=== PATIENT | male | born 1990 | race Caucasian/White ===

== ENCOUNTER 2017-01-01 05:51 | Emergency (ER) | payer MEDICARE, OTHER, MEDICAID ==
--- NOTE | 2017-01-01 08:00 | ED ---
Abdominal Pain/Male - HPI Summary HPI Summary: Non-verbal, developmentally delayed pt here w/ constipation. Last BM was on 2016. Pt has struggled w/ constipation his whole life but this is one of 2 times it's been this bad. Pt's PCP switched him from Miralax to lactulose 2 weeks ago. Mom reports he was taking miralax routinely but when she switched brands, it didn't work as well. She switched back to brand name Miralax. Has given him multiple Fleet's enema's now (1 last night, 1 this morning). She heard him whining in his room this morning and he appeared to be struggling w/ a BM - she thinks it's so painful to move at this point, he not trying to push anymore. Has not tried suppository. Denies fever, vomiting, skin changes, signs/sx of illness (ie. no coughing, sneezing, rhinorrhea, change in appetite, pain w/ eating/drinking). Mom has had OM. Pt is UTD w/ imms. No h/o ab pathology other than constipation. He does had GERD and takes PPI daily - no recent change in brand or dose. Pt is scheduled to see Dr. Ashley 01/23. - History of Current Complaint Chief Complaint: EDAbdPain Stated Complaint: CONSTIPATION Time Seen by Provider: 01/01/17 06:05 Hx Obtained From: Family/Production Superintendent - mom - Allergies/Home Medications Allergies/Adverse Reactions: Allergies Allergy/AdvReac Type Severity Reaction Status Date / Time Amoxicillin Allergy Hives Verified 01/01/17 13:47 Carbamazepine [From Tegretol] Allergy Nausea And Verified 01/01/17 13:47 Vomiting Cefaclor [From Ceclor] Allergy Hives Verified 01/01/17 13:47 Gentamicin Allergy Hives Verified 01/01/17 13:47 Penicillins Allergy Hives Verified 01/01/17 13:47 Vancomycin Allergy Hives Verified 01/01/17 13:47 Figs Allergy Hives Uncoded 01/01/17 13:47 ROBINOL Allergy Hives Uncoded 01/01/17 13:47 Sure Fine Hi C Allergy Hives Uncoded 01/01/17 13:47 PMH/Surg Hx/FS Hx/Imm Hx Previously Healthy: Yes Respiratory History: Reports: Other Respiratory Problems/Disorders - POSITIVE TB TEST GI History: Reports: Hx Gastroesophageal Reflux Disease - takes PPI, Other GI Disorders - HX OF CONSTIPATION Neurological History: Reports: Hx Developmental Delay, Other Neuro Impairments/ Disorders - non-verbal Infectious Disease History: No Infectious Disease History: Denies: Traveled Outside the [place] in Last 30 Days - Social History Occupation: Unemployed Lives: With Family Alcohol Use: None Hx Substance Use: No Substance Use Type: Reports: None Hx Tobacco Use: No Smoking Status (MU): Never Smoked Tobacco Review of Systems Negative: Fever, Chills, Fatigue Negative: Sore Throat - eating and drinking w/o hesitation, Ear Ache - not tugging on ears Negative: Shortness Of Breath, Cough Positive: Abdominal Pain - see HPI. Negative: Vomiting, Diarrhea Genitourinary: Other - still wetting diapers Positive: no symptoms reported Negative: Decreased ROM Negative: Rash, Bruising Negative: Weakness Psychological: Normal All Other Systems Reviewed And Are Negative: Yes Physical Exam - Summary Physical Exam Summary: Level 5 caveat - developmental delay, non-verbal, does not follow commands Triage Information Reviewed: Yes Vital Signs On Initial Exam: Initial Vitals Temp Pulse Resp BP Pulse Ox 99.2 F 87 18 121/61 98 01/01/17 05:56 01/01/17 05:56 01/01/17 05:56 01/01/17 05:56 01/01/17 05:56 Vital Signs Reviewed: Yes Appearance: Positive: Well-Appearing - non-verbal, No Pain Distress, Well- Nourished Skin: Positive: Warm, Dry - no rash, no ecchymosis observed Eyes: Positive: Normal, EOMI, Conjunctiva Clear - anicteric sclera ENT: Positive: Pharynx normal - mucosa moist, TMs normal. Negative: Nasal congestion, Nasal drainage, TM bulging, TM dull, TM red Neck: Positive: Supple Respiratory/Lung Sounds: Positive: Clear to Auscultation, Breath Sounds Present. Negative: Rales, Rhonchi, Wheezes Cardiovascular: Positive: RRR, Pulses are Symmetrical in both Upper and Lower Extremities Abdomen Description: Positive: Guarding Bowel Sounds: Positive: Present Musculoskeletal: Positive: Other - contracted Neurological: Positive: Other - non-verbal, does not understand nor respond to commands - Abdi Coma Scale Coma Scale Total: 15 Procedures - Procedure Summary Procedure Summary: Attempted Digital Rectal disimpaction w/o success - stool was not palpated but rather a space - flecks of stool were removed w/ lubricant in finger - no blood observed. Pt tolerated well. Diagnostics - Vital Signs Vital Signs Temp Pulse Resp BP Pulse Ox 01/01/17 05:56 99.2 F 87 18 121/61 98 - Laboratory Result Diagrams: 01/01/17 12:45 01/01/17 12:45 Lab Statement: Any lab studies that have been ordered have been reviewed, and results considered in the medical decision making process. Abdominal Pain Fem Course/Dx - Course Course Of Treatment: Pt presents w/ constipation - last BM 4 days ago. H/o constipation and mom believes this may be d/t recent change in laxatives. She tried 2 Fleet's enemas at home. Denies recent s/sx of illness (fever, vomiting, diarrhea, change in appetite, etc). Ab XR reveals constipation w/o obstruction. Attempted soap suds enema followed by [facility] w/ hopes of disimpaction w/o success of BM. CT normal other than constipation. Labs and vital are WNL. Spoke w/ Dr. Armas who agrees to have Dr. Ashley's nurse contact the pt's family this week to move appt sooner. Okay to try mag citrate 1 bottle OR miralax 4 glasses per day. Will provide mag citrate here and d/c home with instructions on how to use miralax. Reviewed danger s/sx of when to return to ED. Pt's mom voices understanding. - Diagnoses Differential Diagnosis/HQI/PQRI: Appendicitis, Bowel Obstruction, Constipation, Diverticulitis, Gall Bladder Disease, Pancreatitis, Ureteral Stone, Urinary Tract Infection Provider Diagnoses: Slow transit constipation - Provider Notifications Discussed Care Of Patient With: Dr. Calabrese. Dr. Armas Discharge - Discharge Plan Condition: Stable Disposition: HOME Patient Education Materials: Constipation (ED) Referrals: Syed Devlin [Primary Care Provider] - Travon Ashley MD [Medical Doctor] - Additional Instructions: Complete bottle of magensium citrate 300 ml today Starting tomorrow, may provide patient with 4 glasses of miralax until moves bowels - once he moves bowels, may back down to 3 glasses a day and then 2 glasses per day Make sure patient is drinking enough fluid to prevent dehydration Dr. Ashley's office should be calling you this week to schedule an updated appointment. If you do not hear from them by Saturday, please call. You may follow-up with PCP this week if patient does not have a BM in the next 1 -2 days. *If patient develops vomiting, difficulty breathing, change in skin color, fever , sweating, shortness of breath, difficulty breathing, decreased urine output, lethargy, return to ED
--- NOTE | 2017-01-01 08:06 | RAD ---
Indication: Constipation, abdominal pain. Comparison: December 31, 2011 Technique: Supine and standing abdomen views. Report: Moderately large volume of stool present throughout the colon with suggestion of moderate rectal distention with stool. Air-fluid levels within the transverse and descending colon on the standing view. No dilated small or large bowel loops evident. No suspicious calcifications or mass effect. IMPRESSION: Moderately large burden of stool present throughout the colon with suggestion of moderate rectal distention. Air-fluid levels in the colon without significant colonic or small bowel distention to indicate obstruction.
[2017-01-01] MEDS ORDERED: Lidocaine 4% TOPICAL* 50 ML TOP.SOLN TOPICAL ONE (11:08)
[2017-01-01] MEDS ORDERED: Lidocaine 2% JELLY* 10 ML JELLY TOPICAL ONE (11:17)
[2017-01-01] MEDS ORDERED: Lidocaine 2% JELLY* 6 ML JELLY TOPICAL ONE (12:00)
[2017-01-01] MEDS ORDERED: NS 0.9% 1000 ML* 1,000 ML IV ONE (12:12)
[2017-01-01 13:01] LABS: Hematocrit 44 % (42-52); Hemoglobin 14.4 g/dl (14.0-18.0); Mean Corpuscular HGB Conc 33 g/dl (31-36); Mean Corpuscular Hemoglobin 27 pg (27-31); Mean Corpuscular Volume 83 fL (80-94); Mean Platelet Volume 9 um3 (7.4-10.4); Red Blood Count 5.37 10^6/ul (4.0-5.4); Red Cell Distribution Width 16 % (10.5-15); White Blood Count 9.2 10^3/ul (3.5-10.8)
[2017-01-01 13:24] LABS: Potassium 3.9 mmol/L (3.5-5.0)
[2017-01-01 13:25] LABS: Albumin 4.5 g/dL (3.2-5.2); BUN/Creatinine Ratio 21.4 (8-20); C Reactive Protein 6.09 mg/L (< 5.00); Calcium 9.7 mg/dL (8.6-10.3); EGFR Non-African American 109.6 (>60); Globulin 3.5 g/dL (2-4); Total Bilirubin 0.3 mg/dL (0.2-1.0)
[2017-01-01] MEDS ORDERED: Iohexol 300* (CONTRAST) 10 ML SDV IV ONE (13:52)
--- NOTE | 2017-01-01 15:12 | RAD ---
CLINICAL HISTORY: Abdominal pain, constipation COMPARISON: None TECHNIQUE: Multiple contiguous axial CT scans were obtained of the abdomen and pelvis after the administration of intravenous contrast. Coronal and sagittal multiplanar reformations are submitted for review. Oral contrast was not administered. Delayed images were obtained through the abdomen FINDINGS: The study is limited by patient motion artifact. LUNG BASES: The lung bases are clear. LIVER: The liver is normal in shape, size, contour, and attenuation. BILE DUCTS: There is no intrahepatic or extrahepatic biliary dilatation. GALLBLADDER: The gallbladder is normal, without pericholecystic inflammatory change. PANCREAS: The pancreas is normal, without mass or ductal dilatation. SPLEEN: Normal in size and appearance. UPPER GI TRACT: Evaluation of the gastrointestinal tract is limited by incomplete gastric distention. The upper GI tract is unremarkable. SMALL BOWEL AND MESENTERY: The small bowel is normal in contour, course, and caliber. There is no obstruction or dilatation. COLON: The colon is normal in contour, course, caliber. There is no pericolonic inflammatory change. There is a tubular, vermiform, hollow viscus that is blind ending, and originates from the cecum, consistent with a normal appendix. There is no periappendiceal inflammatory change. This is best seen on coronal images 37 through 41 ADRENALS: Normal bilaterally. KIDNEYS: There is left pelviectasis without hydroureter calculus. BLADDER: The bladder is smooth in contour. PELVIC ORGANS: The prostate gland is normal. The seminal vesicles are symmetric. AORTA: The aorta is normal. IVC: Unremarkable LYMPH NODES: There is no lymphadenopathy by size criteria. ABDOMINAL WALL: There is no evidence for abdominal wall hernia. BONES AND SOFT TISSUES: The bones and soft tissues are unremarkable. OTHER: None IMPRESSION: 1. LIMITED STUDY. 2. LEFT-SIDED PELVIECTASIS WITHOUT APPRECIABLE HYDROURETER OR CALCULUS. 3. NORMAL APPENDIX
[2017-01-01 15:35] VITALS: BP 118/60
[2017-01-01 16:21] LABS: Urine Bilirubin Negative (Negative); Urine Glucose Negative (Negative); Urine Nitrite Negative (Negative)
[2017-01-01] MEDS ORDERED: Magnesium CITRATE* 300 ML BTL PO ONE (17:17)
== END 2017-01-01 18:24 | disposition home or self-care (01) ==
LOC: ED 05:51
DX: K59.00 Constipation, unspecified (principal); R10.9 Unspecified abdominal pain
CPT/HCPCS: 36415; 74020; 74177; 80053; 81003; 83605; 83690; 85025; 86140; 99283; A9270-GY; Q9967

== ENCOUNTER 2017-01-02 13:41 | Emergency (ER) | payer MEDICARE, OTHER ==
[2017-01-02] MEDS ORDERED: Sodium Phosphate ADULT ENEMA* 118 ml bottle PR ONE ×2 (16:05→16:57)
[2017-01-02] MEDS ORDERED: Magnesium CITRATE* 300 ML BTL PO ONE (16:05)
--- NOTE | 2017-01-02 16:18 | ED ---
Abdominal Pain/Male - HPI Summary HPI Summary: Patient was seen in the ED yesterday for constipation, which he has battled throughout his life. He has severe MR and this has been managed by his parents with laxatives and enemas, which have not worked in this instance. He had a CT scan yesterday which was negative for acute process, and discharged with magnesium citrate. He did not have a bowel movement last night. His mother called Dr. Palmer's office who was not able to get him in today so they recommended doing two fleets enema's and another dose of magnesium citrate. His mother was uncomfortable doing this at home so she brought him to the ED for treatment and re-evaluation. He is eating and drinking, without fever, chills, nausea or vomiting. His last bowel movement was 12/28/16. - History of Current Complaint Chief Complaint: EDGeneral Stated Complaint: CONSTIPATED Time Seen by Provider: 01/02/17 15:49 Hx Obtained From: Family/Supervisor [employer] Hx From Patient Unobtainable Due To: Other - severe MR Onset/Duration: Gradual Onset Timing: Constant Severity Initially: Moderate Severity Currently: Severe Pain Intensity: 0 Location: Diffuse Radiates: No Aggravating Factor(s): Nothing Alleviating Factor(s): Nothing Associated Signs And Symptoms: Positive: Constipation - Allergies/Home Medications Allergies/Adverse Reactions: Allergies Allergy/AdvReac Type Severity Reaction Status Date / Time Amoxicillin Allergy Hives Verified 01/01/17 13:47 Carbamazepine [From Tegretol] Allergy Nausea And Verified 01/01/17 13:47 Vomiting Cefaclor [From Ceclor] Allergy Hives Verified 01/01/17 13:47 Gentamicin Allergy Hives Verified 01/01/17 13:47 Penicillins Allergy Hives Verified 01/01/17 13:47 Vancomycin Allergy Hives Verified 01/01/17 13:47 Figs Allergy Hives Uncoded 01/01/17 13:47 ROBINOL Allergy Hives Uncoded 01/01/17 13:47 Sure Fine Hi C Allergy Hives Uncoded 01/01/17 13:47 Home Medications: Home Medications Diazepam (ANTICONVULSANT)(*) [Diastat Acudial(*)] 10 mg [place] ONCE PRN 01/02/17 [ History Confirmed 01/02/17] Lactulose* 15 ml PO BID 01/02/17 [History Confirmed 01/02/17] Pediatric Multiple Vitamin W/ [Multivitamin Gummies Chil] 1 chw PO DAILY [History Confirmed 01/02/17] Phenytoin CAP(*) [Dilantin CAP(*)] 50 mg PO BID 01/02/17 [History Confirmed 06/13] Polyethylene Glycol 3350* [Miralax*] 17 gm PO DAILY 01/02/17 [History Confirmed 01/02/17] Rabeprazole (NF) [Aciphex (NF)] 20 mg PO QPM 01/02/17 [History Confirmed ] PMH/Surg Hx/FS Hx/Imm Hx Respiratory History: Reports: Other Respiratory Problems/Disorders - POSITIVE TB TEST GI History: Reports: Hx Gastroesophageal Reflux Disease - takes PPI, Other GI Disorders - HX OF CONSTIPATION Neurological History: Reports: Hx Developmental Delay, Other Neuro Impairments/ Disorders - non-verbal - Surgical History Surgery Procedure, Year, and Place: OPEN HEART 1993, CLEFT PALATE REPAIR, ASD REPAIR, UNDESCENDED TESTICLE REPAIR, HYPOSPADIUS REPAIR, LT URETER REPAIR, FRENDECTOMY, LT FOOT SURGERY Infectious Disease History: No Infectious Disease History: Denies: Traveled Outside the [place] in Last 30 Days - Family History Known Family History: Positive: None - Social History Occupation: Disabled Lives: With Family Alcohol Use: None Hx Substance Use: No Substance Use Type: Reports: None Hx Tobacco Use: No Smoking Status (MU): Never Smoked Tobacco Review of Systems Negative: Fever Positive: Other - constipation. Negative: Vomiting, Nausea All Other Systems Reviewed And Are Negative: Yes Physical Exam Triage Information Reviewed: Yes Vital Signs On Initial Exam: Initial Vitals Temp Pulse Resp BP Pulse Ox 98.9 F 80 18 138/75 100 01/02/17 13:47 01/02/17 13:47 01/02/17 13:47 01/02/17 13:47 01/02/17 13:47 Vital Signs Reviewed: Yes Appearance: Positive: Well-Appearing, No Pain Distress, Well-Nourished Skin: Positive: Warm, Skin Color Reflects Adequate Perfusion, Dry, Soft Head/Face: Positive: Normal Head/Face Inspection Eyes: Positive: EOMI, ONEAL, Conjunctiva Clear ENT: Positive: Hearing grossly normal Respiratory/Lung Sounds: Positive: Breath Sounds Present Cardiovascular: Positive: RRR Abdomen Description: Positive: Soft. Negative: CVA Tenderness (R), CVA Tenderness (L), Distended, Guarding Bowel Sounds: Positive: Hypoactive Musculoskeletal: Negative: Edema Left, Edema Right Neurological: Positive: Sensory/Motor Intact - baseline as per parents, Normal Gait Psychiatric: Positive: Affect/Mood Appropriate AVPU Assessment: Alert Diagnostics - Vital Signs Vital Signs Temp Pulse Resp BP Pulse Ox 01/02/17 14:57 99.3 F 72 20 139/79 100 01/02/17 13:47 98.9 F 80 18 138/75 100 - Laboratory Lab Statement: Any lab studies that have been ordered have been reviewed, and results considered in the medical decision making process. Re-Evaluation - Re-Evaluation First Eval Re-Evaluation Time: 17:30 Change: Unchanged Comment: No bowel movement. Second Eval Re-Evaluation Time: 19:00 Change: Unchanged Comment: No bowel movement Third Eval Re-Evaluation Time: 20:10 Change: Unchanged Comment: No bowel movment and hospitalist says patient will not meet criteria for admission. I will give fluids with Lactulose 30mg now. Fourth Eval Re-Evaluation Time: 22:20 Change: Unchanged Comment: Patient has not had a bowel movement. He does not appear to be in acute distress and has stable vital signs. Abdominal Pain Fem Course/Dx - Course Course Of Treatment: The patient's mother is quite upset that her son does not meet criteria for admission. I explained in detail and at length that he can be admitted but that the hospitalist believes it will be a care home admission and she may have to pay the full bill if her insurance does not cover the admission. She is unwilling to sign the form that acknowledges this fact, and is opting to take him home for close follow-up in the AM with Dr. Palmer's office. - Diagnoses Differential Diagnosis/HQI/PQRI: Bowel Obstruction, Constipation, Ischemic Bowel , Urinary Tract Infection Provider Diagnoses: Constipation - Provider Notifications Discussed Care Of Patient With: Dr. Romero, hospitalist. Time Discussed With Above Provider: 20:00 Discharge - Discharge Plan Condition: Stable Disposition: HOME Prescriptions: Lactulose* 30 ml PO QID #240 ml Patient Education Materials: Constipation (ED) Referrals: Syed Devlin [Primary Care Provider] - Joaquim Vegas MD [Medical Doctor] - Additional Instructions: Please given 30ml of lactulose at 2:00 am then every 6 hours after until bowel movement. Call Dr. Vegas first thing in the morning to discuss treatment options. Return to the emergency department if symptoms worsen, such as a temperature of 100.4 or greater, vomiting, or heart rate over 100.
[2017-01-02] MEDS ORDERED: NS 0.9% 1000 ML* 2,000 ML IV ONE (20:12)
[2017-01-03 00:01] VITALS: BP 130/73
== END 2017-01-02 23:10 | disposition home or self-care (01) ==
LOC: ED 13:41
DX: K59.00 Constipation, unspecified (principal); Z88.0 Allergy status to penicillin; F72 Severe intellectual disabilities
CPT/HCPCS: 99282; A9270-GY

== ENCOUNTER → 2018-01-24 07:33 | Day surgery (SDC) | payer MEDICARE, OTHER, MEDICAID ==
[~2018-01-24 07:33] MED LIST: Buffered Lidocaine 0.9% SYRIN* 5 ML/SYR SYRINGE INTRADERM ONE; Gadoteridol* (CONTRAST) 279.3 MG/ML 10 ML IV ONE; Lidocaine 2% PF * 5 ML VIAL ONE; Lidocaine 2.5%/Prilocain 2.5%* 5 GM TUBE TOPICAL SCH; Naloxone* 0.4 MG/ML 1 ML VIAL IV PRN; Succinylcholine* 20 MG/ML 10 ML VIAL ONE
[2018-01-24 10:30] VITALS: BP 138/77
--- NOTE | 2018-01-24 10:57 | RAD ---
Indication: Developmental delay. RIGHT hip pain and swelling. Difficulty internally rotated hip joints. Comparison: January 01, 2017 CT. Technique: Stylecrooka 1.5 Jennifer [id number] with GEM suite. Pre and postcontrast MRI pelvis RIGHT unilateral hip protocol. 9 mL ProHance ministered IV. Report: Negative for stress reaction, fracture, avascular necrosis, or suspicious focal osseous lesions within the [id number]. 1 cm T1 and T2 hyperintense lesion at the L5 vertebral body is consistent with a benign osseous hemangioma without concern. Mild bilateral symmetric decreased anterolateral femoral head neck offset. Unremarkable acetabular morphology. Minimal osteophytic lipping at the femoral head neck junctions. Suggestion of mild degeneration of the superior segment of the RIGHT acetabular labrum with probable early osseous metaplasia. No compelling abnormality of the hip joint hyaline articular cartilage. Negative for joint effusions. Unremarkable hip abductor tendon insertions and hamstring tendon group origins. Negative for skeletal muscle atrophy. Large volume of stool within the visualized colon with moderately severe rectal distention. Negative for lymphadenopathy within the [id number]. IMPRESSION: 1. Only minimal degenerative change at the hips. Suggestion of mild degeneration at the superior segment of the RIGHT acetabular labrum. No discrete labral tear evident. 2. 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
== END | disposition home or self-care (01) ==
LOC: OR 07:33
PROVIDERS: ATTEND Orthopaedic Surgery
DX: M25.551 Pain in right hip (principal); M25.851 Other specified joint disorders, right hip; Q23.1 Congenital insufficiency of aortic valve; M24.151 Other articular cartilage disorders, right hip
CPT/HCPCS: 36415; A9579; J0330

== ENCOUNTER → 2019-02-20 06:54 | Day surgery (SDC) | payer MEDICARE, OTHER, MEDICAID ==
[~2019-02-20 06:54] MED LIST changes: +Atracurium* 10 MG/ML 10 ML VIAL ONE; -Buffered Lidocaine 0.9% SYRIN* 5 ML/SYR SYRINGE INTRADERM ONE; +Buffered Lidocaine 1% SYRIN* 1 ML/SYRINGE INTRADERM ONE; +Famotidine IV* 10 MG/ML 2 ML (20 mg) IV ONE; +Famotidine IV* 10 MG/ML 2 ML (20 mg) ONE; +Famotidine TAB* 20 MG ONE; +Famotidine TAB* 20 MG PO ONE; -Gadoteridol* (CONTRAST) 279.3 MG/ML 10 ML IV ONE; +Lactated Ringers 1000 ML Bag* 1,000 ML IV SCH; -Lidocaine 2.5%/Prilocain 2.5%* 5 GM TUBE TOPICAL SCH; +Ondansetron INJ* 2 MG/ML VIAL ONE; +Phenylephrine 40 MCG/ML SYRINGE ONE; +Propofol* 10 MG/ML 20 ML BTL ONE; +Rocuronium* 10 MG/ML VIAL ONE
[2019-02-20 10:23] VITALS: BP 152/83
== END | disposition home or self-care (01) ==
LOC: OR 06:54
PROVIDERS: ATTEND Psychiatry & Neurology Neurology
DX: G40.909 Epilepsy, unspecified, not intractable, without status epilepticus (principal); Z79.899 Other long term (current) drug therapy; R45.1 Restlessness and agitation
CPT/HCPCS: 70551; A9270-GY; J0330; J2405; J2704

== ENCOUNTER 2019-03-02 12:35 | Day surgery (SDC) | payer MEDICARE, OTHER, MEDICAID ==
[~2019-03-02 12:35] MED LIST changes: -Atracurium* 10 MG/ML 10 ML VIAL ONE; +Dexamethasone TAB* 4 MG PO ONE; +DiMENhydriNATE IV* 50 MG/ML VIAL IV PUSH PRN; -Famotidine IV* 10 MG/ML 2 ML (20 mg) ONE; -Famotidine TAB* 20 MG ONE; -Famotidine TAB* 20 MG PO ONE; -Lidocaine 2% PF * 5 ML VIAL ONE; +PROCHLORPERAZINE INJ 5 MG/ML 2 ML VIAL IV PRN; -Phenylephrine 40 MCG/ML SYRINGE ONE; -Propofol* 10 MG/ML 20 ML BTL ONE; -Rocuronium* 10 MG/ML VIAL ONE; -Succinylcholine* 20 MG/ML 10 ML VIAL ONE
[2019-03-02] MEDS ORDERED: fentaNYL* 50 MCG/ML 2 ML VIAL (100 MCG VIAL) ONE (12:40)
[2019-03-02] MEDS ORDERED: Atracurium* 10 MG/ML 10 ML VIAL ONE (12:41)
[2019-03-02] MEDS ORDERED: KETAMINE HCL* 50 MG/ML 10 ML VIAL ONE (12:41)
[2019-03-02] MEDS ORDERED: Midazolam* 1 MG/ML 5 ML VIAL (5 MG) ONE (12:41)
[2019-03-02] MEDS ORDERED: Ondansetron ODT TAB* 4 MG ONE (12:54)
[2019-03-02] MEDS ORDERED: Famotidine IV* 10 MG/ML 2 ML (20 mg) ONE (12:54)
[2019-03-02] MEDS ORDERED: Neostigmine Methylsulfate* 1 MG/ML 10 ML VIAL (1 mg/ml) ONE (15:19)
[2019-03-02] MEDS ORDERED: Glycopyrrolate IV* 0.2 MG/ML 1 ML VIAL ONE ×2 (15:19→15:20)
[2019-03-02 16:26] VITALS: BP 121/72
--- NOTE | 2019-03-03 06:43 | PRO ---
CC: Radha Anderson MD * DATE OF OPERATION: 03/02/19 [facility] PROCEDURE: EGD. INDICATION: Anemia. REFERRING PHYSICIAN: Radha Anderson MD. MEDICATIONS GIVEN: Anesthesia per the Anesthesia Department. NARRATIVE: After the EGD procedure, including the risks, benefits, and alternatives, not limited to perforation, surgery and/or were explained to the patient and his parents, written consent was then obtained. IV medication was given by the anesthesia services and a bite-block was placed between the teeth. An Olympus gastroscope was then inserted into the patient's mouth, advanced down the esophagus, into the stomach and through the distal duodenum. 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 Biopsy was obtained. The scope was advanced through the GE junction into the body of the stomach. Retroflex view was unremarkable. Forward view did reveal a gastric polyp. It was removed with biopsy forceps and an H. pylori biopsy was obtained. The scope was advanced through a widely patent pylorus, into the duodenal bulb and into the distal duodenum, both of which were unremarkable. Biopsies were obtained for celiac disease. The scope was then withdrawn from the patient. He tolerated the procedure well and was returned to the recovery room in stable condition. IMPRESSION: 1. Complete upper endoscopy into the distal duodenum with biopsy polypectomy and biopsies. 2. Ruiz's mucosa, status post biopsy. 3. Gastric polyps, status post biopsy. 4. Gastritis. 5. Biopsy for celiac and H. pylori. 6. I would like to switch him over to Protonix or switch him over to pantoprazole twice a day. I will call this in for him given the fact that it appears he could have Ruiz's. Findings were discussed with the patient's parents. [id number]/[facility] #: [id number] [facility]
== END 2019-03-02 16:26 | disposition home or self-care (01) ==
LOC: OR 12:35
PROVIDERS: ATTEND Internal Medicine Gastroenterology
DX: E61.1 Iron deficiency (principal); K31.7 Polyp of stomach and duodenum; Q93.3 Deletion of short arm of chromosome 4; G80.9 Cerebral palsy, unspecified; Q23.1 Congenital insufficiency of aortic valve; J45.909 Unspecified asthma, uncomplicated; F79 Unspecified intellectual disabilities; Z88.0 Allergy status to penicillin
CPT/HCPCS: 87077; 88305; A9270-GY; J2250; J2710; J3010

== ENCOUNTER → 2019-07-31 05:47 | Day surgery (SDC) | payer MEDICARE, OTHER, MEDICAID ==
[~2019-07-31 05:47] MED LIST changes: -Dexamethasone TAB* 4 MG PO ONE; -DiMENhydriNATE IV* 50 MG/ML VIAL IV PUSH PRN; -Famotidine IV* 10 MG/ML 2 ML (20 mg) IV ONE; +Gadoteridol* (CONTRAST) 279.3 MG/ML 10 ML IV ONE; +Lidocaine 2% PF * 5 ML VIAL ONE; -Ondansetron INJ* 2 MG/ML VIAL ONE; -PROCHLORPERAZINE INJ 5 MG/ML 2 ML VIAL IV PRN; +Propofol* 10 MG/ML 20 ML BTL ONE; +Sodium Citrate/Citric Acid* 15 ML UDC ONE
[2019-07-31 08:29] VITALS: BP 162/82
== END | disposition home or self-care (01) ==
LOC: OR 05:47
PROVIDERS: ATTEND Psychiatry & Neurology Neurology
DX: G40.909 Epilepsy, unspecified, not intractable, without status epilepticus (principal); R94.02 Abnormal brain scan; G43.409 Hemiplegic migraine, not intractable, without status migrainosus; Z79.899 Other long term (current) drug therapy; R45.1 Restlessness and agitation; Q93.89 Other deletions from the autosomes
CPT/HCPCS: 70553; A9270-GY; A9579; J2704